=== PATIENT | male | born 1995 ===

== ENCOUNTER 2021-04-27 11:26 | Emergency (ER) | payer MEDICAID ==
[~2021-04-27] VITALS: Ht 172.7 cm; Wt 99.8 kg
[2021-04-27 12:04] VITALS: BP 147/78
[2021-04-27] MEDS ORDERED: LIDOCAINE 1% HCL (LOCAL ANESTH.) INJ 20ML MDV ONE (13:06)
[2021-04-27] MEDS ORDERED: cefTRIAXone SOD 1,000 MG VL IM ONE ×2 (13:30)
== END 2021-04-27 14:01 | disposition home or self-care (01) ==
LOC: ER 11:26
DX: S61.411A Laceration without foreign body of right hand, initial encounter (principal); S61.451A Open bite of right hand, initial encounter; L03.113 Cellulitis of right upper limb; W50.3XXA Accidental bite by another person, initial encounter; Y93.89 Activity, other specified; Y92.89 Other specified places as the place of occurrence of the external cause; Y99.8 Other external cause status
CPT/HCPCS: 10060; 73130; 96372; 99283; J0696; J2001

== ENCOUNTER 2021-04-29 13:31 | Emergency (ER) | payer MEDICAID ==
[~2021-04-29] VITALS: Ht 172.7 cm; Wt 99.8 kg
[2021-04-29 15:00] VITALS: BP 130/74
== END 2021-04-29 15:21 | disposition home or self-care (01) ==
LOC: ER 13:31
DX: L03.113 Cellulitis of right upper limb (principal); L02.512 Cutaneous abscess of left hand